=== PATIENT | female | born 1985 | race Caucasian/White ===

== ENCOUNTER 2017-06-16 18:10 | Emergency (ER) | END 2017-06-16 19:03 | disposition home or self-care (01) ==

== ENCOUNTER 2018-06-17 19:05 | Emergency (ER) | payer OTHER ==
[~2018-06-17] VITALS: Ht 157.5 cm; Wt 53.4 kg
[~2018-06-17 19:05] MED LIST: CLIN300C10 PO; IBUP-1542 PO
[2018-06-17 19:45] VITALS: Ht 157.5 cm; Wt 53.4 kg
[2018-06-17] MEDS ORDERED: ACETAMINOPHEN 325 MG TAB PO STA (20:01)
[2018-06-17] MEDS ORDERED: SODIUM CHLORIDE 0.9% 1L BAG IV* STA (20:01)
[2018-06-17] MEDS ORDERED: CEFTRIAXONE 1 GM/50 ML (PMX) 50 ML IVPB STA (20:01)
[2018-06-17] MEDS ORDERED: AMOX1TAB10 PO (21:19)
--- NOTE | 2018-06-17 21:20 | ERD ---
ER Documentation Chief Complaint Chief Complaint C/O ST, FEVER, CHILLS AND BODY ACHES X3 NIGHTS, ON 2ND DAY OF Z PACK HPI Patient is a 33-year-old female with no medical problems who presents with a sore throat. She has fevers and pus on her tonsils. She was given a Z-Glenn last night by [facility]. The patient's symptoms are worse today. Upon review of old medical records this is the patient's fourth visit to the ER since 2013. ROS All systems reviewed and are negative except as per history of present illness. Medications Home Meds Active Scripts Amoxicillin/Potassium Clav (Amox-Clav 875-125 mg Tablet) 875-125 mg Tab, 1 TAB PO BID for 7 Days, #14 TAB Prov:SHILPA MAHONEY MD 06/17/18 Discontinued Scripts Ibuprofen* (Motrin*) 600 Mg Tab, 600 MG PO Q6H PRN for PAIN AND OR ELEVATED TEMP, #30 TAB Prov:JAYY BRAN NP 06/16/17 Clindamycin Hcl* (Clindamycin Hcl*) 300 Mg Capsule, 300 MG PO TID for 10 Days, CAP Prov:JAYY BRAN NP 06/16/17 Allergies Allergies: Coded Allergies: No Known Drug Allergies (Verified Allergy, Unknown, 06/17/18) PMhx/Soc Medical and Surgical Hx: pt denies Medical Hx, pt denies Surgical Hx History of Surgery: Yes (LIPOSUCTION APR 2018) Anesthesia Reaction: No Hx Neurological Disorder: No Hx Respiratory Disorders: No Hx Cardiac Disorders: No Hx Psychiatric Problems: No Hx Miscellaneous Medical Probl: No Hx Alcohol Use: No Hx Substance Use: No Hx Tobacco Use: No Smoking Status: Never smoker FmHx Family History: No diabetes Physical Exam Vitals Vital Signs Date Temp Pulse Resp B/P (MAP) Pulse Ox O2 O2 Flow FiO2 Time Delivery Rate 06/17/18 100.8 102 18 109/65 100 Room Air 21:24 (80) 06/17/18 102.8 20:24 06/17/18 102.6 122 17 123/76 100 Room Air 20:19 (92) 06/17/18 103.1 136 22 119/65 99 19:45 (83) Physical Exam Const: Moderate distress Head: Atraumatic Eyes: Normal Conjunctiva ENT: Pus on the tonsils bilaterally Neck: Full range of motion. No meningismus. Resp: Clear to auscultation bilaterally Cardio: Tachycardic rate without murmur Abd: Soft, non tender, non distended. Normal bowel sounds Skin: No petechiae or rashes Back: No midline or flank tenderness Ext: No cyanosis, or edema Neur: Awake and alert Psych: Normal Mood and Affect Result Diagram: 06/17/18200706/17/182007 Results 24 hrs Laboratory Tests Test 06/17/18 20:08 White Blood Count 16.9 10^3/ul Red Blood Count 4.45 10^6/ul Hemoglobin 13.2 g/dl Hematocrit 39.5 % Mean Corpuscular Volume 88.8 fl Mean Corpuscular Hemoglobin 29.7 pg Mean Corpuscular Hemoglobin Concent 33.4 g/dl Red Cell Distribution Width 12.4 % Platelet Count 291 10^3/UL Mean Platelet Volume 9.8 fl Immature Granulocytes % 0.900 % Neutrophils % 86.9 % Lymphocytes % 6.0 % Monocytes % 5.8 % Eosinophils % 0.0 % Basophils % 0.4 % Nucleated Red Blood Cells % 0.0 /100WBC Immature Granulocytes # 0.150 10^3/ul Neutrophils # 14.7 10^3/ul Lymphocytes # 1.0 10^3/ul Monocytes # 1.0 10^3/ul Eosinophils # 0.0 10^3/ul Basophils # 0.1 10^3/ul Nucleated Red Blood Cells # 0.0 10^3/ul Prothrombin Time 12.8 Sec Prothrombin Time Ratio 1.0 INR International Normalized Ratio 0.95 Activated Partial Thromboplast Time 23.9 Sec Sodium Level 140 mmol/L Potassium Level 3.8 mmol/L Chloride Level 106 mmol/L Carbon Dioxide Level 21 mmol/L Anion Gap 13 Blood Urea Nitrogen 10 mg/dl Creatinine 0.67 mg/dl Est Glomerular Filtrat Rate mL/min > 60 mL/min Glucose Level 133 mg/dl Calcium Level 9.4 mg/dl Total Bilirubin 0.2 mg/dl Direct Bilirubin 0.00 mg/dl Indirect Bilirubin 0.2 mg/dl Aspartate Amino Transf (AST/SGOT) 26 IU/L Alanine Aminotransferase (ALT/SGPT) 18 IU/L Alkaline Phosphatase 80 IU/L Troponin I < 0.012 ng/ml Total Protein 7.3 g/dl Albumin 4.0 g/dl Globulin 3.30 g/dl Albumin/Globulin Ratio 1.21 Current Medications Medications Dose Sig/Mary Start Time Status Last (Trade) Ordered Route PRN Stop Time Admin Dose Reason Admin Sodium 1,600 ml BOLUS OVER 2 06/17/18 DC 06/17/18 Chloride HOURS STAT 20: 20:24 (NS) IV* 06/17/18 20:02 650 mg ONCE STAT 06/17/18 DC 06/17/18 Acetaminophen PO 20: 20:24 (Tylenol 06/17/18 20:02 Tab) Ceftriaxone 50 ml @ ONCE STAT 06/17/18 DC 06/17/18 Sodium 100 mls/hr IVPB 20: 20:23 06/17/18 20:30 Procedures/MDM EKG read by me: Rate/Rhythm: Sinus tachycardia rate of 121 Intervals: Normal Impression: Tachycardia without ischemia Chest x-ray read by radiology was negative. Patient is a 33-year-old female who presents with acute pharyngitis. The patient will be changed from Zithromax to Augmentin. She was given fluids and ceftriaxone as well as Tylenol in the emergency department. I doubt sepsis. I do not believe she requires admission to the hospital at this time. I believe outpatient management is appropriate but she will need close follow-up with her primary doctor within 24-48 hours for reevaluation. Departure Diagnosis: Primary Impression: Tonsillitis Additional Impression: Sore throat Condition: Fair Patient Instructions: Pharyngitis, Strep (Presumed) Additional Instructions: Call your primary care doctor TOMORROW for an appointment during the next 1 WEEK.Tell the [facility] that you were referred from this facility.See the doctor sooner or return here if your condition worsens before your appointment time. SHILPA MAHONEY MD Jun 17, 2018 21:20
[2018-06-17 21:24] VITALS: BP 109/65; PULSE 102; RESP 18
== END 2018-06-17 21:31 | disposition home or self-care (01) ==
LOC: E/R 19:05
DX: J03.90 Acute tonsillitis, unspecified (principal); J02.9 Acute pharyngitis, unspecified; R07.9 Chest pain, unspecified
CPT/HCPCS: 36415; 71045; 80053; 84484; 85025; 85610; 85730; 87040; 93005; 96374; J0696; J7030; Z7502; Z7610